=== PATIENT | male | born 1970 | race Caucasian/White ===

== ENCOUNTER 2019-02-04 07:18 | Day surgery (SDC) | payer OTHER, SELFPAY ==
--- NOTE | 2019-01-30 11:11 | SUR.PREOP ---
Addendum entered by Charisse Dean RN 01/30/19 11:15: Date of arrival is for Monday02/04/19 at 0715 confirmed with correctional facility. 01/30/19 1117 Original Note: Spoke with Migdalia Taylor, RN - director of agronomy at correctional facility, relayed time to arrive for 07Monday02/01/19 and he can take his omeprazole the morning. carmen 01/30/19 1113
--- NOTE | 2019-02-04 06:43 | W.COLOREPORT ---
Date of service: 02/04/19 Time of Service: : Colonoscopy Report Date of procedure: 02/04/19 Pre-op diagnosis general: Anemia Post-op diagnosis procedure note: same (and 2 small hyperplastic polyps) Procedure: Colonoscopy Surgeon: Kamryn Garcia Anesthesia proc note operative: other (General/ ASA 2/Darian Francis CRNA) Estimated blood loss (mL): 3 Pathology: other (Rectal polyps x2) Complications: None Disposition: same day Indications: 48 y/o male with history of GERD, and HTN presents for colonoscopy pre-op. He was recently diagnosed with iron deficiency anemia and was started on an iron supplement. He denies a family history of colon cancer. He denies any changes in bowel habits including bloody, abdominal pain, diarrhea or constipation. He does report having dark stools after starting the iron supplement. He denies constitutional symptoms. Denies use of marijuana or any other recreational or illegal drugs. Risks, benefits and complications have been reviewed. Complications include but are not limited to bleeding, pain, perforation, missed small lesion/polyp, sore throat, aspiration and adverse reaction to the medications. Questions were entertained and answered to their satisfaction and they wished to proceed. No guarantees were given or implied. Prep: Miralax/Dulcolax Procedure Start Time: : Procedure End Time: :58 Retraction Time: 25 minutes Findings: 2 small hyperplastic polyps in the rectum Procedure Description: After informed consent was obtained the patient was taken to the procedure room and placed in a left decubitous position. Monitors were applied and a time out was done. The patients name, date of , procedure, allergies to medications and metal in their body was reviewed. The patient was then sedated. Once sedated and comfortable a rectal exam was done. External exam was normal. Internal exam revealed a normal sphincter tone and no palpable masses. The prostate felt smooth. The scope was then introduced and retro-flexed. No internal hemorrhoids were identified. The scope was then advanced to the cecum without difficulty. The TI and appendiceal orifice were identified. The prep was marginal. There was a lot of stool in the entire bowel. 1 L of sterile water was used to clean the mucosa for better visualization The scope was then slowly retracted over 25 minutes back into the rectum. Polyps were removed with cold forceps in the rectum. There were no diverticula. The scope was removed and the patient was woken up and taken back to Same day surgery in stable condition. The patient tolerated the procedure well and there were no immediate complications. Follow up: The patient should follow up in 10 years unless they develop changes in bowel habits or other new gastrointestinal complaints.
--- NOTE | 2019-02-04 06:44 | W.PM.DSUDISC ---
Discharge Plan Disposition Patient Disposition: HOME Condition: Good Discharge Details Reason For Visit: Anemia Attending Provider: Kamryn Garcia Primary Care Provider: Luiza Whitfield Home Meds and New Rx's Prescriptions: Continued dextroamphetamine-amphetamine [Adderall] 20 mg tablet 20 mg PO TID RF: 0 omeprazole 20 mg capsule,delayed release(DR/EC) 20 mg PO DAILY RF: 0 docusate sodium 100 mg capsule 100 mg PO BID RF: 0 ferrous sulfate 325 mg (65 mg iron) tablet 325 mg PO BID RF: 0 lisinopril 5 mg tablet 5 mg PO DAILY RF: 0 hydrochlorothiazide 12.5 mg capsule 12.5 mg PO DAILY RF: 0 buprenorphine HCl 2 mg Tablet, Sublingual 4 mg SUBLINGUAL DAILY RF: 0 Discharge Instructions Instructions: Colonoscopy (DC) Additional Instructions: Findings: 2 small hyperplastic polyps in the rectum Follow up: 10 years Please call if you develop: fevers >101.5 Nausea or Vomiting Abdominal pain that is not transient DAY SURGERY UNIT POST ENDOSCOPY INSTRUCTIONS 1. Because there will be medication in your system for the next 24 hours, you may feel a little sleepy. Your coordination will be affected. Therefore: a. Do not drive or operate dangerous equipment for 24 hours. b. Do not drink alcohol beverages for 24 hours (not even beer). c. Plan to go home and rest for the day. 2. Generally there are no restrictions on your activity after a day or so has gone by, but you may feel a bit fatigued for a few days. 3 After you arrive home you may have a light meal and return to a normal diet as you can tolerate it without feeling sick to your stomach. 4. After surgery, you may feel pain or discomfort. This should be only transient, but if it persists please contact your doctor. 5. If there are any questions regarding the findings of your procedure, please feel free to contact your doctor. 6. If you are unable to contact your doctor with a problem, contact the hospital at [phone]. 7. Continue all your regular medications unless directed otherwise. I understand the above instructions and have no questions. Signature of Patient or Responsible Adult Escort Date/Time Name of Responsible Adult Escort Signature of Nurse Date/Time Activity:: Activity as Tolerated Diet:: As Tolerated Discharge Orders Discharge Orders: Discharge Order (Routine); Ordered 02/04/19 Ordered By: Kamryn Garcia DS: Diagnosis Discharge Diagnosis (1) Iron (Fe) deficiency anemia: Status: Acute (2) S/P colonoscopy: Status: Acute
[2019-02-04 07:40] VITALS: BP 135/102; PULSE 97; RESP 18; TEMP 36.3; O2SAT 96
[2019-02-04] MEDS: Lactated Ringers 1,000 ML 80 ML IV (07:50)
--- NOTE | 2019-02-04 08:57 | BOWEL_PTH ---
PATIENT: YANG CEJA LOC: [facility] U#:[id number] AGE/SX: 48/M ROOM: RE02/04/[address]: Kamryn Garcia MD : [id number] BED: DIS: 02/04/2019 SPEC #: [id number] RECD: 02/04/19 12:34 STATUS: PETR REQ #: [id number] TIMBO: 02/04/19 08:[address]: Kamryn Garcia DEPT: Surgical Specimen RECD BY: Chani Paniagua ENTERED: 02/04/19 12:35 SP TYPE: Bowel OTHR DR: Luiza Whitfield Tissues: 1 - BIOPSY BOWEL Procedures: GROSS AND MICRO LEVEL 4 Comments: [id number]
[2019-02-04 09:30] VITALS: BP 100/73; PULSE 79; RESP 18; TEMP 36.5; O2SAT 97
[2019-02-04 10:00] VITALS: BP 114/80; PULSE 77; RESP 18; TEMP 36.6; O2SAT 97
== END 2019-02-04 10:17 | disposition home or self-care (01) ==
LOC: SUR 07:18
PROVIDERS: PCP Nurse Practitioner Adult Health; Visit Provider Surgery
PROC: 0DJD8ZZ Inspection of Lower Intestinal Tract, Via Natural or Artificial Opening Endoscopic (ICD-10-PCS; CPT 45378; principal; 2019-02-04 08:15)
DX: D50.9 Iron deficiency anemia, unspecified (principal); I10 Essential (primary) hypertension; K62.1 Rectal polyp; K21.9 Gastro-esophageal reflux disease without esophagitis
CPT/HCPCS: 45380; 88305